=== PATIENT | male | born 1980 | race Caucasian/White ===

== ENCOUNTER 2017-08-17 21:24 | Emergency (ER) | payer MEDICARE, MEDICAID ==
[~2017-08-17] VITALS: Ht 172.7 cm; Wt 59.0 kg
[~2017-08-17 21:24] MED LIST: CEPH500C5 PO; CLOT12CR TOP; MUPI15CR TOP; NO HOME MEDS
[2017-08-17] MEDS ORDERED: iohexol 300mg/ml 100ml inj. ONE ×2 (22:19→23:07)
[2017-08-17] MEDS ORDERED: vancomycin inj 1,000 MG in normal saline 250ml IV soln 250 ML IV ONE (22:50)
[2017-08-17 23:01] LABS: BASOPHILS % (AUTO) 0.2 % (0-1); EOSINOPHILS # (AUTO) 0.4 X10'3 (0-0.9); EOSINOPHILS % (AUTO) 3.2 % (0-6); HEMATOCRIT 40.4 % (42.0-52.0); HEMOGLOBIN 13.9 g/dl (14.0-17.9); LYMPHOCYTES # (AUTO) 2.6 X10'3 (1.1-4.8); LYMPHOCYTES % (AUTO) 24.1 % (21-51); MEAN CORPUSCULAR HEMOGLOBIN 29.6 PG (27.0-31.0); MEAN CORPUSCULAR HGB CONC 34.5 % (33.0-36.5); MEAN CORPUSCULAR VOLUME 85.8 FL (78-98); MEAN PLATELET VOLUME 6.6 FL (7.4-10.4); MONOCYTES # (AUTO) 0.7 X10'3 (0-0.9); MONOCYTES % (AUTO) 6.7 % (2-12); NEUTROPHILS # (AUTO) 7.2 X10'3 (1.8-7.7); NEUTROPHILS % (AUTO) 65.8 % (42-75); PLATELET COUNT 380 X10'3 (140-440); RED BLOOD COUNT 4.71 X10'6 (4.70-6.10); RED CELL DISTRIBUTION WIDTH 13.8 % (11.5-14.5)
[2017-08-17 23:10] LABS: ALANINE AMINOTRANSFERASE 34 U/L (12-78); ALBUMIN 3.1 G/DL (3.4-5.0); ALBUMIN/GLOBULIN RATIO 0.7 (1.1-1.5); ALKALINE PHOSPHATASE 93 IU/L (46-116); ANION GAP 9 (8-16); ASPARTATE AMINO TRANSFERASE 24 U/L (10-37); BILIRUBIN,TOTAL 0.7 MG/DL (0.1-1.0); BLOOD UREA NITROGEN 7 MG/DL (7-18); BUN/CREATININE RATIO 7.8 (5.4-32.0); CALCIUM 9.1 MG/DL (8.5-10.1); CHLORIDE 103 MMOL/L (99-107); GLUCOSE 128 MG/DL (70-104); MAGNESIUM 1.9 MG/DL (1.5-2.4); POTASSIUM 3.9 MMOL/L (3.5-5.1); SODIUM 140 MMOL/L (135-145); TOTAL CARBON DIOXIDE 28.5 MMOL/L (24-32); TOTAL PROTEIN 7.8 G/DL (6.4-8.2); eGFR > 90 ML/MIN
[2017-08-17] MEDS ORDERED: piperacillin/tazo 3.375gm/50ml 50 ML IV SCH (23:14)
[2017-08-17 23:15] LABS: PARTIAL THROMBOPLASTIN TIME 30 SECONDS (22-32); PROTHROMBIN TIME 10.4 SECONDS (9.0-12.0)
[2017-08-17] MEDS ORDERED: vancomycin/NS 1 GM ADD-VANTAGE 250 ML IV ONE (23:15)
[2017-08-18] MEDS ORDERED: LIDOcaine 1.5% w/epinephrine 1:200,000 5ml ampul IJ ONE (02:20)
[2017-08-18] MEDS ORDERED: TETanus/Pertussis (Acell)/Diphther VAC/PF (Tdap-Adult) 0.5ml syringe IMVAC ONE (02:20)
[2017-08-18] MEDS ORDERED: SULF1TAB49 PO (03:15)
[2017-08-18] MEDS ORDERED: ketorolac trometh inj. 60 MG/2 ML VIAL IM ONE (03:15)
[2017-08-18] MEDS ORDERED: CEPH500C5 PO (03:15)
[2017-08-18] MEDS ORDERED: IBUP-1984 PO (03:15)
[2017-08-18 03:16] LABS: CLARITY,URINE CLEAR (Clear); GLUCOSE, URINE NEGATIVE (Neg); KETONES,URINE NEGATIVE (Neg); LEUKOCYTE ESTERASE ,URINE NEGATIVE (Neg); NITRITES, URINE NEGATIVE (Neg); OCCULT BLOOD,URINE NEGATIVE (Neg); PH,URINE 6.5 (4.8-8.0); PROTEIN,URINE NEGATIVE (Neg); UROBILINOGEN,URINE 0.2 E.U/dL (0.2-1.0)
[2017-08-18 03:20] LABS: COLOR,URINE YELLOW (Yellow); UA COLLECTION TYPE CLN CATCH MIDSTREAM
[2017-08-18 03:42] VITALS: BP 139/77
== END 2017-08-18 03:45 | disposition home or self-care (01) ==
LOC: ER 21:24
DX: L02.11 Cutaneous abscess of neck (principal); F17.200 Nicotine dependence, unspecified, uncomplicated; F15.10 Other stimulant abuse, uncomplicated; F11.10 Opioid abuse, uncomplicated; Z98.890 Other specified postprocedural states; Z88.8 Allergy status to other drugs, medicaments and biological substances; Z79.899 Other long term (current) drug therapy
CPT/HCPCS: 10061; 36415; 70491; 71045; 80053; 81003; 83605; 83735; 84145; 85025; 85610; 85730; 87040; 87070; 90471; 90715; 93005; 96365; 96366; 96368; 96372; 99285; J1885; J2543; J3370; J3490; J7030; Q9967

== ENCOUNTER 2017-08-19 13:32 | Emergency (ER) | payer MEDICARE, MEDICAID ==
[~2017-08-19 13:32] MED LIST changes: +IBUP-1984 PO; +SULF1TAB49 PO
== END 2017-08-19 14:18 | disposition left against medical advice (07) ==
LOC: ER 13:32
DX: M54.2 Cervicalgia (principal); Z53.21 Procedure and treatment not carried out due to patient leaving prior to being seen by health care provider

== ENCOUNTER 2017-08-19 14:32 | Emergency (ER) | payer MEDICARE, MEDICAID ==
[~2017-08-19] VITALS: Ht 172.7 cm; Wt 77.3 kg
[2017-08-19 14:33] VITALS: BP 118/76
[2017-08-19] MEDS ORDERED: bacitracin 15gm ointment TP ONE (14:50)
== END 2017-08-19 15:24 | disposition home or self-care (01) ==
LOC: ER 14:32
DX: L02.11 Cutaneous abscess of neck (principal); F15.90 Other stimulant use, unspecified, uncomplicated; F11.90 Opioid use, unspecified, uncomplicated; Z86.14 Personal history of Methicillin resistant Staphylococcus aureus infection; Z98.890 Other specified postprocedural states; Z59.0 Homelessness; Z79.899 Other long term (current) drug therapy
CPT/HCPCS: 99282; A6257; A6258; A6266; A6402

== ENCOUNTER 2017-08-23 01:33 | Emergency (ER) | payer MEDICARE, MEDICAID ==
[~2017-08-23] VITALS: Ht 172.7 cm; Wt 67.8 kg
[2017-08-23 01:53] VITALS: BP 126/82
== END 2017-08-23 02:21 | disposition home or self-care (01) ==
LOC: ER 01:33
DX: L02.11 Cutaneous abscess of neck (principal); F15.90 Other stimulant use, unspecified, uncomplicated; F11.90 Opioid use, unspecified, uncomplicated; Z88.8 Allergy status to other drugs, medicaments and biological substances; Z79.2 Long term (current) use of antibiotics; Z79.899 Other long term (current) drug therapy; Z98.890 Other specified postprocedural states; Z59.0 Homelessness
CPT/HCPCS: 99281

== ENCOUNTER 2018-09-07 18:55 | Emergency (ER) | payer MEDICAID, MEDICARE ==
[~2018-09-07] VITALS: Ht 170.2 cm; Wt 79.5 kg
[~2018-09-07 18:55] MED LIST changes: -CEPH500C5 PO; -IBUP-1984 PO; -SULF1TAB49 PO
[2018-09-07] MEDS ORDERED: ALPRAZolam 0.5mg tablet PO ONE (19:20)
[2018-09-07 19:31] VITALS: BP 126/72
== END 2018-09-07 19:34 | disposition home or self-care (01) ==
LOC: ER 18:57
DX: F41.9 Anxiety disorder, unspecified (principal); F32.9 Major depressive disorder, single episode, unspecified; F15.90 Other stimulant use, unspecified, uncomplicated; F11.90 Opioid use, unspecified, uncomplicated; Z59.0 Homelessness; Z98.890 Other specified postprocedural states; Z88.5 Allergy status to narcotic agent; Z86.14 Personal history of Methicillin resistant Staphylococcus aureus infection
CPT/HCPCS: 99282; 99284